=== PATIENT | male | born 1985 | race Caucasian/White ===

== ENCOUNTER 2022-03-11 05:34 | Outpatient (CLI) | payer OTHER ==
[~2022-03-11] VITALS: Ht 175.3 cm; Wt 101.6 kg
[2022-03-11] MEDS ORDERED: PANT40TA52 PO (14:20)
== END 2022-03-11 14:24 | disposition home or self-care (01) ==
LOC: PREOP 05:34
PROVIDERS: ATTEND Surgery
DX: Z01.818 Encounter for other preprocedural examination (principal)

== ENCOUNTER 2022-03-13 10:32 | Day surgery (SDC) | payer OTHER ==
[~2022-03-13] VITALS: Ht 175 cm; Wt 101.6 kg
[~2022-03-13 10:32] MED LIST: PANT40TA52 PO
[2022-03-13] MEDS ORDERED: LACTATED RINGERS 1,000 ML IV STA (10:38)
[2022-03-13] MEDS ORDERED: LACTATED RINGERS 1,000 ML IV ONE (10:44)
[2022-03-13] MEDS ORDERED: HURRICAINE EXT TUBE (BENZOCAINE) XX PRN (10:45)
[2022-03-13] MEDS ORDERED: LIDOCAINE JELLY 2% 6 ML SYRINGE MM PRN (10:45)
[2022-03-13 10:50] VITALS: BP 129/94
--- NOTE | 2022-03-13 10:57 | Progress Note-Pre Operative ---
Pre-Operative Progress Note H&P Reviewed The H&P was reviewed, patient examined and no changes noted. Date Seen by Provider: Mar 13, 2022 Time Seen by Provider: 10:45 Date H&P Reviewed: Mar 13, 2022 Time H&P Reviewed: :45 Pre-Operative Diagnosis: GERD, elevated LFT's ALEX STOKES MD Mar 13, 2022 10:57
--- NOTE | 2022-03-13 10:59 | Discharge Inst-Surgical ---
D/C Lap Instructions-KIKE Follow Up 2weeks Activity as tolerated High Fiber Diet 25g or more per day Avoid Alcohol, Caffeine, Spicy Kim and Acid foods. Drink 64 fluid oz or more of fluids per day. Symptoms to Report: Fever over 101 degree F, Nausea/Vomiting If any problems/questions: Contact your physician or go to Emergency Room ALEX STOKES MD Mar 13, 2022 10:59
[2022-03-13] MEDS ORDERED: ONDANSETRON 4 MG/2 ML (SDV) Z0FRAN IVP PRN (11:00)
[2022-03-13] MEDS ORDERED: ONDANSETRON 4 MG (ZOFRAN) ORAL DISSOLVE TAB PO PRN (11:00)
[2022-03-13] MEDS ORDERED: MIDAZOLAM 2 MG/2 ML (VERSED) VIAL ONE (11:44)
[2022-03-13] MEDS ORDERED: proPOfol 200 MG/20 ML (DIPRIVAN) VIAL IV ONE (11:44)
[2022-03-13] MEDS ORDERED: PROPOFOL INJECTION 50 ML IV ONE (11:57)
[2022-03-13] MEDS ORDERED: KETAMINE 50 MG/5 ML SYRINGE ONE (12:01)
[2022-03-13 12:22] VITALS: BP 133/74
[2022-03-13 12:27] VITALS: BP 141/85
[2022-03-13 12:32] VITALS: BP 122/78
[2022-03-13 12:34] VITALS: BP 122/78
--- NOTE | 2022-03-13 12:51 | Progress Note-Post Operative ---
Post-Operative Progess Note Surgeon (s)/Appraiser Timber (s) Surgeon ALEX STOKES MD Appraiser Timber: none Pre-Operative Diagnosis GERD, elevated LFT's Post-Operative Diagnosis reflux esophagitis(grade B), small HH(1.5cm), moderate gastritis. Procedure & Operative Findings Date of Procedure 03/13/22 Procedure Performed/Findings EGD with bx. Anesthesia Type mac Estimated Blood Loss Estimated blood loss (mL): minimal Specimens/Packing Specimens Removed ge jxn, antrum ALEX STOKES MD Mar 13, 2022 12:51
--- NOTE | 2022-03-13 19:17 | OPERATIVE REPORT ---
DATE OF SERVICE: 03/13/2022 PREOPERATIVE DIAGNOSES: Gastroesophageal reflux disease. POSTOPERATIVE DIAGNOSES: Reflux esophagitis, Doucette grade B, small hiatal hernia approximately 2 cm in size, and moderate gastritis. PROCEDURES PERFORMED: EGD with biopsy. SURGEON: Alex Stokes MD. ANESTHESIA: Monitored anesthesia care. ESTIMATED BLOOD LOSS: Minimal. FINDINGS: Reflux esophagitis, Doucette grade B, small hiatal hernia approximately 2 cm in size, and moderate gastritis. DISPOSITION: The patient tolerated the procedure well. INDICATIONS FOR PROCEDURE: The patient is a 56-year-old male referred over to us by the [facility]. He has a history of epigastric pain; however, has also had been found to have elevated liver function enzymes. He does drink a significant amount of alcohol per the patient and his and states several beers daily; however, may have 30 on a weekend. He, however, is adamant about not being an alcoholic. He was also found to have elevated liver function enzymes. A CT scan was performed, which did show a gallbladder polyp. DESCRIPTION OF PROCEDURE: The patient was brought to the endoscopy suite and laid in the left lateral decubitus position. After adequate IV pain and sedative medications and monitored anesthesia care, the mouthpiece was applied. The endoscope was placed in the mouth, visualizing the pharynx and hypopharyngeal region. Vocal cords, epiglottis, and vallecula identified and appeared to be normal. The endoscope was then gently intubated, the esophageal opening and esophagus insufflated. The endoscope was then advanced through the first, second, and third portion of esophagus. At the level of the GE junction, a reflux esophagitis, Doucette grade II identified. A biopsy was taken with forceps with visualization of good hemostasis. The endoscope was advanced into the stomach and endoscope retroflexed, visualizing a small hiatal hernia approximately 2 cm in size. There was a moderate severity gastritis. No formal ulcerations, polyps or any neoplasms. A biopsy was taken of the antrum to rule out H. pylori with visualization of good hemostasis. The endoscope was then advanced to the pylorus and first and second portion of the duodenum, which appeared normal. The endoscope was then slowly withdrawn while taking a second look and suctioning residual air with no additional findings. The patient tolerated the procedure well. We will recommend the necessary lifestyle and dietary accommodation including small and more frequent meals, avoiding to eating at night as well as head elevation while lying supine. He also needs to moderate alcohol and caffeinated beverages as well as spicy, greasy, and acidic foods. There is a chance that he does have a symptomatic gallbladder polyp and a possibility of liver steatosis as well. If he continues to have symptoms, our next recommendation would then be to proceed with a laparoscopic cholecystectomy as well as a liver biopsy. Job ID: [id number] DocumentID: [id number] Dictated Date: 03/13/2022 12:22:17 Software Test Technician Date: 03/13/2022 19:16:45 Dictated By: ALEX STOKES MD MTDD
== END 2022-03-13 13:14 | disposition home or self-care (01) ==
LOC: ENDO 10:32
PROVIDERS: ATTEND Surgery
DX: K21.00 Gastro-esophageal reflux disease with esophagitis, without bleeding (principal); K44.9 Diaphragmatic hernia without obstruction or gangrene; K29.70 Gastritis, unspecified, without bleeding; K82.4 Cholesterolosis of gallbladder; F17.210 Nicotine dependence, cigarettes, uncomplicated; Z79.899 Other long term (current) drug therapy

== ENCOUNTER 2022-04-16 07:20 | Emergency (ER) | payer OTHER ==
[~2022-04-16] VITALS: Ht 175 cm; Wt 100.0 kg
--- NOTE | 2022-04-16 07:53 | ED General ---
General Chief Complaint: Fever-Adult/Adol Stated Complaint: L EAR INFECTION,FEVER,COUGH Nursing Triage Note: ARRIVED VIA AMB TO ROOM 10. FEVER OF 102 STARTED EARLY SAT MORNING. WAS PUT ON AMOXICILLIN AND STATES HE IS NOT BETTER. COMPLAINS OF HEADACHE, SORE THROAT, COUGH. History of Present Illness Date Seen by Provider: April 16, 2022 Time Seen by Provider: 07:35 Initial Comments 37-year-old male with no significant PMH, is here with complaints of bilateral ear pain, with the left ear being worse than the right, sore throat, myalgia, cough, lethargic for the past 3 to 4 days. No known sick contacts. Patient went to urgent care in [place] on Friday, and was given a prescription for amoxicillin 500 mg twice a day. Patient started taking it at 11 AM on Friday but has not felt any improvement with it, and states that his ear pain and sore throat has been worsening since then with accompanied ringing in his ears. Denies discharge from ears, chest pain, shortness of breath, abdominal pain, diarrhea, blurry vision, neck pain or neck stiffness. Patient has also been experiencing loss of taste and loss of smell as well, and has not been drinking much water. Patient did a home test for COVID which was negative. Pt started developing ringing in his ears so he poured hydrogen peroxide into his ear as well. Allergies and Home Medications Allergies Coded Allergies: No Known Drug Allergies (Unverified , 03/11/22) Patient Home Medication List Home Medication List Reviewed: Yes Pantoprazole Sodium (Pantoprazole Sodium) 40 Mg Tablet.dr, 40 MG PO DAILY, (Reported) Entered as Reported by: RONAK WICK on 03/11/22 [id number] Review of Systems Review of Systems Constitutional: chills, fever, malaise EENTM: ear pain, nose congestion, throat pain Respiratory: cough Cardiovascular: no symptoms reported Gastrointestinal: no symptoms reported Genitourinary: no symptoms reported Musculoskeletal: no symptoms reported Skin: no symptoms reported Psychiatric/Neurological: No Symptoms Reported Hematologic/Lymphatic: No Symptoms Reported Immunological/Allergic: no symptoms reported Past Viruohc-Wfllte-Tvgmrg Hx Patient Social History Tobacco Use?: No Substance use?: No Alcohol Use?: Yes Alcohol Frequency: Once in a while Immunizations Up To Date First/Initial COVID19 Vaccinat: UNKNOWN Second COVID19 Vaccination Hussein: yes Third COVID19 Vaccination Date: NO COVID19 Vaccine Slubber Hand: J&J Seasonal Allergies Seasonal Allergies: No Past Medical History Surgeries: No Respiratory: No Cardiac: No Neurological: No Genitourinary: No Gastrointestinal: Yes (abd pain) Gastroesophageal Reflux Musculoskeletal: No Endocrine: No HEENT: No Cancer: No Psychosocial: Yes Anxiety Integumentary: No Blood Disorders: No Physical Exam Vital Signs Vital Signs - First Documented 04/16/22 07:30 Temp 36.6 Pulse 90 Resp 16 B/P (MAP) 118/90 (99) Pulse Ox 97 O2 Delivery Room Air Capillary Refill : Less Than 3 Seconds Height, Weight, BMI Height: '" Weight: lbs. oz. kg; 32.00 BMI Method: General Appearance: No Apparent Distress HEENT: PERRL/EOMI, Pharyngeal Erythema (with tonsillar enlargemwnt, no exudates), TM Abnormal (L) (left worse than right), TM Abnormal (R), Tonsillar Enlargement Neck: Full Range of Motion, Normal Inspection, Non Tender, Supple Respiratory: Chest Non Tender, Lungs Clear, Normal Breath Sounds, No Accessory Muscle Use Cardiovascular: Regular Rate, Rhythm Gastrointestinal: Normal Bowel Sounds, Non Tender, Soft Back: No CVA Tenderness Neurologic/Psychiatric: Alert, Oriented x3, No Motor/Sensory Deficits, Normal Mood/Affect Skin: Normal Color Progress/Results/Core Measures Suspected Sepsis SIRS Temperature: Pulse: 90 Respiratory Rate: 16 Laboratory Tests 04/16/22 08:13: White Blood Count 10.6 Blood Pressure 118 /90 Mean: 99 Laboratory Tests 04/16/22 08:13: Platelet Count 247 Results/Orders Lab Results Laboratory Tests Test 04/16/22 07:31 04/16/22 08:13 Range/Units Influenza Type A (RT-PCR) Not Detected Not Detecte Influenza Type B (RT-PCR) Not Detected Not Detecte SARS-CoV-2 RNA (RT-PCR) Not Detected Not Detecte Group A Streptococcus Screen NEGATIVE NEGATIVE White Blood Count 10.6 4.3-11.0 10^3/uL Red Blood Count 5.32 4.30-5.52 10^6/uL Hemoglobin 15.1 13.3-17.7 g/dL Hematocrit 44 40-54 % Mean Corpuscular Volume 84 80-99 fL Mean Corpuscular Hemoglobin 28 25-34 pg Mean Corpuscular Hemoglobin Concent 34 32-36 g/dL Red Cell Distribution Width 12.6 10.0-14.5 % Platelet Count 247 130-400 10^3/uL Mean Platelet Volume 10.0 9.0-12.2 fL Immature Granulocyte % (Auto) 1 % Neutrophils (%) (Auto) 72 42-75 % Lymphocytes (%) (Auto) 18 12-44 % Monocytes (%) (Auto) 8 0-12 % Eosinophils (%) (Auto) 1 0-10 % Basophils (%) (Auto) 0 0-10 % Neutrophils # (Auto) 7.6 1.8-7.8 10^3/uL Lymphocytes # (Auto) 2.0 1.0-4.0 10^3/uL Monocytes # (Auto) 0.8 0.0-1.0 10^3/uL Eosinophils # (Auto) 0.2 0.0-0.3 10^3/uL Basophils # (Auto) 0.0 0.0-0.1 10^3/uL Immature Granulocyte # (Auto) 0.1 0.0-0.1 10^3/uL Sodium Level 138 135-145 MMOL/L Potassium Level 3.9 3.6-5.0 MMOL/L Chloride Level 102 98-107 MMOL/L Carbon Dioxide Level 23 21-32 MMOL/L Anion Gap 13 5-14 MMOL/L Glucose Level 96 70-105 MG/DL Calcium Level 9.2 8.5-10.1 MG/DL Corrected Calcium 9.0 8.5-10.1 MG/DL Total Protein 7.1 6.4-8.2 GM/DL Albumin 4.2 3.2-4.5 GM/DL My Orders Orders - ZENY RO MD Cbc With Automated Diff (04/16/22 07:45) Comprehensive Metabolic Panel (04/16/22 07:45) Rapid Strep A Screen (04/16/22 07:45) Covid 19 Inhouse Test (04/16/22 07:45) Ed Iv/Invasive Line Start (04/16/22 07:46) Ns Iv 1000 Ml (Sodium Chloride 0.9%) (04/16/22 08:00) Ketorolac Injection (Toradol Injection) (04/16/22 08:05) Ketorolac Injection (Toradol Injection) (04/16/22 08:03) Influenza A And B By Pcr (04/16/22 07:31) Vital Signs/I&O 04/16/22 07:30 Temp 36.6 Pulse 90 Resp 16 B/P (MAP) 118/90 (99) Pulse Ox 97 O2 Delivery Room Air Capillary Refill : Less Than 3 Seconds Blood Pressure Mean: 99 Progress Note : Progress Note 1. BILATERAL OTITIS MEDIA/ ACUTE PHARYNGITIS: - Rapid COVID test/ Rapid Flu Test - Rapid Strep test - CBC/ CMP - NS IVF - Toradol 15mg iv - Pt has taken 2 days of Amoxicillin, I will change medication to Augmentin 875mg Q12H for 10 days. Prescription for Augmentin 875/125mg twice a day for 10 days. Advised to stop taking plain Amoxicillin, and take the Augmentin instead. - Ibuprofen and Tylenol prn pain and fever - Cepacol throat spray, Over the counter. Follow instructions on bottle - Follow up with PCP within 5 to 7 days -The patient was seen in the ED, and treated appropriately to presentation at a specific point in time. Patient is informed that there is a possibility that disease and illness can evolve and change in acuity rapidly or slowly after patient is discharged from the ER. Precautionary advice given to the patient for immediate return to ER if symptoms worsen or do not resolve, and to seek emergency care sooner rather than later. Pt also advised on the importance of PCP follow up and compliance with management and follow up plan with PCP and/or specialist, as this is part of the management plan. Pt verbally expressed understanding. Departure Impression Primary Impression: Bilateral acute otitis media Additional Impressions: Acute pharyngitis Qualified Codes: J02.9 - Acute pharyngitis, unspecified Lab test negative for COVID-19 virus Dehydration determined by examination Disposition: HOME, SELF-CARE Condition: Critical Departure-Patient Inst. Referrals: NO,LOCAL PHYSICIAN (PCP/Family) Primary Care Physician Patient Instructions: Dehydration, Adult (DC), Sore Throat in Adults, Why Water Is Important to Health, Ear Infections (Otitis Media) in Adults (DC) Add. Discharge Instructions: Prescription for Augmentin 875/125mg twice a day for 10 days. Advised to stop taking plain Amoxicillin, and take the Augmentin instead. Called prescription into pharmacy. - Ibuprofen and Tylenol prn pain and fever - Cepacol throat spray, Over the counter. Follow instructions on bottle - Follow up with PCP within 5 to 7 days All discharge instructions reviewed with patient and/or family. Voiced understanding. Scripts Ketorolac Tromethamine (Ketorolac Tromethamine) 10 Mg Tablet 10 MG PO Q6H PRN for PAIN-MODERATE (5-7) for 3 Days, #12 TAB Do not take other NSAID's with this medication. Do no take more than 40mg in one day. Prov: ZENY RO MD 04/16/22 Work/School Note: Work Release Form Date Seen in the Emergency Department: April 16, 2022 Return to Work: Apr 18, 2022 Restrictions: No Restrictions ZENY RO MD April 16, 2022 07:53
[2022-04-16] MEDS ORDERED: NS IV 1000 ML 1,000 ML IV SCH (08:00)
[2022-04-16] MEDS ORDERED: KETOROLAC 15 MG/ML VIAL IVP ONE (08:00)
[2022-04-16] MEDS ORDERED: KETOROLAC 30 MG/ML VIAL ONE (08:03)
[2022-04-16] MEDS ORDERED: KETOROLAC 30 MG/ML VIAL IVP STA (08:05)
[2022-04-16 08:26] LABS: BASOPHILS % (AUTO) 0 % (0-10); EOSINOPHILS # (AUTO) 0.2 10^3/uL (0.0-0.3); EOSINOPHILS % (AUTO) 1 % (0-10); HEMATOCRIT 44 % (40-54); HEMOGLOBIN 15.1 g/dL (13.3-17.7); LYMPHOCYTES % (AUTO) 18 % (12-44); MEAN CORPUSCULAR HEMOGLOBIN 28 pg (25-34); MEAN CORPUSCULAR HGB CONC 34 g/dL (32-36); MEAN CORPUSCULAR VOLUME 84 fL (80-99); MONOCYTES # (AUTO) 0.8 10^3/uL (0.0-1.0); MONOCYTES % (AUTO) 8 % (0-12); NEUTROPHILS # (AUTO) 7.6 10^3/uL (1.8-7.8); NEUTROPHILS % (AUTO) 72 % (42-75); PLATELET COUNT 247 10^3/uL (130-400); WHITE BLOOD COUNT 10.6 10^3/uL (4.3-11.0)
[2022-04-16 08:37] LABS: ALBUMIN 4.2 GM/DL (3.2-4.5); POTASSIUM 3.9 MMOL/L (3.6-5.0)
[2022-04-16 08:38] LABS: CALCIUM 9.2 MG/DL (8.5-10.1)
[2022-04-16 08:40] LABS: TOTAL PROTEIN 7.1 GM/DL (6.4-8.2)
[2022-04-16 08:41] LABS: BILIRUBIN,TOTAL 0.5 MG/DL (0.1-1.0)
[2022-04-16 08:43] LABS: CREATININE SERUM 0.92 MG/DL (0.60-1.30)
[2022-04-16] MEDS ORDERED: KETO10TA PO (09:04)
[2022-04-16 09:12] VITALS: BP 133/93
== END 2022-04-16 09:11 | disposition home or self-care (01) ==
LOC: EDUNIT# 07:20 → ER 07:22
DX: H66.93 Otitis media, unspecified, bilateral (principal); J02.9 Acute pharyngitis, unspecified; E86.0 Dehydration; Z20.822 Contact with and (suspected) exposure to COVID-19; Z28.311 Partially vaccinated for COVID-19
CPT/HCPCS: 36415; 80053; 85025; 87430; 87636

== ENCOUNTER 2022-11-01 05:38 | Outpatient (CLI) | payer OTHER ==
[~2022-11-01] VITALS: Ht 175 cm; Wt 100.0 kg
[~2022-11-01 05:38] MED LIST changes: +KETO10TA PO
== END 2022-11-05 12:26 | disposition home or self-care (01) ==
LOC: PREOP 05:38
PROVIDERS: ATTEND Surgery
DX: Z01.818 Encounter for other preprocedural examination (principal); K82.4 Cholesterolosis of gallbladder

== ENCOUNTER 2022-11-28 09:51 | Day surgery (SDC) | payer OTHER ==
[~2022-11-28] VITALS: Ht 175 cm; Wt 100.0 kg
[2022-11-28] VITALS (10 sets, daily range): BP systolic 108–147; BP diastolic 70–98
[2022-11-28] MEDS ORDERED: LACTATED RINGERS 1,000 ML IV PRN ×2 (10:00)
[2022-11-28] MEDS ORDERED: ceFAZolin INJECTION 2,000 MG in NS (IVPB) 50 ML IV ONE (10:00)
--- NOTE | 2022-11-28 10:12 | Progress Note-Pre Operative ---
Pre-Operative Progress Note Date H&P Reviewed: Nov 28, 2022 Time H&P Reviewed: 10:10 History & Physical: H&P Reviewed, Patient Examed, No changes noted Pre-Operative Diagnosis: Symptomatic gallbladder polyp PAM VALDEZ APRN Nov 28, 2022 10:12
[2022-11-28] MEDS ORDERED: HYDR-3817 PO (10:14)
[2022-11-28] MEDS ORDERED: morphine INJ 10 MG/ML 1ML (SYR OR VIAL) IVP PRN (10:15)
[2022-11-28] MEDS ORDERED: ONDANSETRON 4 MG/2 ML (SDV) Z0FRAN IVP PRN ×2 (10:15→12:15)
[2022-11-28] MEDS ORDERED: ACETAMINOPHEN 325 MG TABLET PO PRN (10:15)
[2022-11-28] MEDS ORDERED: HYDROcodone/APAP 5 MG/325 MG (LORTAB) TAB PO ONE (10:15)
--- NOTE | 2022-11-28 10:15 | Discharge Inst-Surgical ---
D/C Lap Instructions-KIDO Reconcile Patient Problems Problems Reviewed?: Yes New, Converted, or Re-Newed RX: RX on Chart Follow Up Appt in 2 weeks Activity as tolerated No driving for 24 hours No driving while on pain medications Incentive Spirometry use every 2 hours while awake Regular Diet Symptoms to Report: Fever over 101 degree F, Nausea/Vomiting Infection Signs and Symptoms to report: Increased redness, Foul odor of wound, Increased drainage Bathing instructions: May shower Operative Area Clean/Dry; Keep incision clean/dry If any problems/questions: Contact your physician or go to Emergency Room PAM VALDEZ APRN Nov 28, 2022 10:15
[2022-11-28] MEDS: LACTATED RINGERS 1,000 ML IV PRN ×2 (10:22→12:19)
[2022-11-28] MEDS ORDERED: MIDAZOLAM 2 MG/2 ML (VERSED) VIAL IVP ONE (10:30)
[2022-11-28] MEDS ORDERED: MIDAZOLAM 2 MG/2 ML (VERSED) VIAL IV ONE (10:30)
[2022-11-28] MEDS ORDERED: MIDAZOLAM 2 MG/2 ML (VERSED) VIAL ONE ×2 (10:31→10:48)
[2022-11-28] MEDS ORDERED: BUP/EPI 0.25% 1:200,000 (MARCAINE) 30 ML VIAL ONE (10:39)
[2022-11-28] MEDS ORDERED: fentaNYL INJ 100 MCG/2 ML AMP ONE ×2 (10:48→12:06)
[2022-11-28] MEDS ORDERED: BUP/EPI 0.25% 1:200,000 (MARCAINE) 30 ML VIAL INJ ONE (11:32)
[2022-11-28] MEDS ORDERED: LIDOCAINE PF 2% 5 ML (XYLOCAINE) VIAL ONE (11:46)
[2022-11-28] MEDS ORDERED: GLYCOPYRROLATE 0.2 MG/ML (ROBINUL) 2 ML VIAL ONE (11:46)
[2022-11-28] MEDS ORDERED: ONDANSETRON 4 MG/2 ML (SDV) Z0FRAN ONE (11:46)
[2022-11-28] MEDS ORDERED: ROCURONIUM 50 MG/5 ML (ZEMURON) VIAL IV ONE (11:46)
[2022-11-28] MEDS ORDERED: NEOSTIGMINE (BLOXIVERZ ) 1 MG/1ML 10 ML VIAL ONE (11:46)
[2022-11-28] MEDS ORDERED: SEVOFLURANE (ULTANE) 15 ML INHAL SOLN ONE (11:46)
[2022-11-28] MEDS ORDERED: HYDROmorphone 2 MG/ML VIAL (DILAUDID) ONE (11:53)
[2022-11-28] MEDS ORDERED: fentaNYL INJ 100 MCG/2 ML AMP IVP ONE (12:15)
[2022-11-28] MEDS ORDERED: HYDROmorphone 2 MG/ML VIAL (DILAUDID) IV ONE (12:15)
[2022-11-28] MEDS ORDERED: HYDROcodone/APAP 7.5 MG/325 MG (LORTAB, LORCET PLUS) TABLET PO ONE ×2 (13:08→13:15)
--- NOTE | 2022-11-28 15:54 | Progress Note-Post Operative ---
Post-Operative Progess Note Surgeon (s)/Contact Lens Technician (s) Surgeon ALEX STOKES MD Contact Lens Technician: maurice gallo SUPERVISOR [employer]ING Pre-Operative Diagnosis Symptomatic gallbladder polyp Post-Operative Diagnosis same Procedure & Operative Findings Date of Procedure 11/28/22 Procedure Performed/Findings laparoscopic cholecystectomy Anesthesia Type get Estimated Blood Loss Estimated blood loss (mL): minimal Specimens/Packing Specimens Removed gallbladder ALEX STOKES MD Nov 28, 2022 15:54
--- NOTE | 2022-11-28 20:25 | OPERATIVE REPORT ---
DATE OF SERVICE: 11/28/2022 ATTENDING PRIMARY SPEECH CORRECTION CONSULTANT: [facility]. PREOPERATIVE DIAGNOSES: Symptomatic gallbladder polyp and biliary dyskinesia. POSTOPERATIVE DIAGNOSES: Symptomatic gallbladder polyp and biliary dyskinesia. PROCEDURE: Laparoscopic cholecystectomy. SURGEON: Dr. Stokes. RISK CONTROL REPRESENTATIVE: Abdiel Almaguer APRN ANESTHESIA: General endotracheal. ESTIMATED BLOOD LOSS: Minimal. FINDINGS: Cholesterolosis of the inner mucosa of the gallbladder. DISPOSITION: The patient tolerated the procedure well. INDICATIONS: The patient is a 37-year-old male who has had 2-year history of intermittent pain in the upper abdominal quadrants with radiation towards the back. He does have some risk factors for peptic ulcer disease as well as liver steatosis. He used to drink on a daily basis including hard alcohol and beer and did have some laboratory work done, which did show elevated liver function enzymes. He states that he did dramatically decrease his alcohol intake and only drinks 1-day a week. Another set of liver function enzyme lab work was done, which became normal. He also underwent an EGD and was found to have reflux esophagitis Hardwick grade B as well as a moderate gastritis; however, no other lesions identified. The patient had reported abdominal bloating and distention as well, usually after eating meals as well as diarrhea after specific foods. He also stated pizza made this much worse. He underwent an ultrasound, which showed a gallbladder polyp and a HIDA scan, which showed an ejection fraction that was on the high end at 74%. His symptoms were likely due to the gallbladder polyp as well as a component of biliary dyskinesia. DESCRIPTION OF PROCEDURE: The patient was brought to the operating room and laid supine on the table. After adequate IV pain and sedative medications and general endotracheal intubation, the abdomen was prepped and draped in standard surgical fashion. A 0.5% Marcaine with epinephrine was then used to anesthetize the overlying skin in the left upper abdominal quadrant and a transverse skin incision made using a #15 blade. An 0 silk suture was applied to the medial aspect of the incision for retraction and a Veress needle inserted with a low opening pressure of 0 mmHg. The abdomen was then insufflated to 15 mmHg pressure. The Veress needle was removed and a 5 mm XL trocar placed followed by a 5 mm 45-degree angle laparoscope visualized in the peritoneal cavity. A 4-quadrant abdominal exploration was performed. There was no gallbladder wall thickening. There was hepatomegaly. Under direct visualization, we then proceeded to place a supraumbilical 10 mm port after the skin and peritoneal lining were anesthetized using 0.5% Marcaine with epinephrine and a transverse skin incision made using a #15 blade. In a similar manner, a right upper abdominal quadrant 5 mm port was placed. The fundus of the gallbladder was then retracted anteriorly and superiorly. The patient was then placed in reverse Trendelenburg position as well as plane right side up, left side down. The hepatoduodenal ligament was then dissected bluntly as well as electrocautery on the hook instrument as well as a [place] dissector. The entire critical view of safety was identified including the triangle of Calot as well as the cystic duct and artery as the only two structures going into the gallbladder as well as the cystic plate behind the proximal gallbladder. A timeout was then taken and the cystic duct and artery were then clipped proximally and distally and cut with EndoShears. The gallbladder was then dissected off of the liver bed using cautery on the hook instrument with visualization of good hemostasis as well as no leaking ducts of Luschka. The gallbladder was removed through the 10 mm port site using an EndoCatch bag. The fascia and peritoneum to the 10 mm port were then closed under direct visualization using a Fede-Elizabeth device and an 0 Vicryl suture. The abdomen was then desufflated and the remaining ports removed. All skin incisions were closed using 4-0 Monocryl running subcuticular sutures. Wounds were then cleaned and covered with Dermabond. The patient tolerated the procedure well. We will start IV and oral pain medication as well as a clear liquid diet. Once he is tolerating clears, has good pain control with oral pain medications, ambulating well, we will discharge him home where he will be instructed to do no heavy lifting or exertion for the next two weeks. Job ID: [id number] DocumentID: [id number] Dictated Date: 11/28/2022 13:17:45 Child Care Education Coordinator Date: 11/28/2022 20:23:00 Dictated By: ALEX STOKES MD [facility]
== END 2022-11-28 13:54 | disposition home or self-care (01) ==
LOC: SDC 09:51
PROVIDERS: ATTEND Surgery
DX: K81.1 Chronic cholecystitis (principal); K82.8 Other specified diseases of gallbladder; E66.9 Obesity, unspecified; Z68.32 Body mass index [BMI] 32.0-32.9, adult; G47.33 Obstructive sleep apnea (adult) (pediatric); F17.210 Nicotine dependence, cigarettes, uncomplicated
CPT/HCPCS: 87081

== ENCOUNTER → 2022-12-05 | Outpatient (CLI) | payer OTHER ==
[~2022-12-05] MED LIST changes: +HYDR-3817 PO
[2022-12-05 10:57] LABS: BASOPHILS % (AUTO) 1 % (0-10); EOSINOPHILS # (AUTO) 0.1 10^3/uL (0.0-0.3); EOSINOPHILS % (AUTO) 1 % (0-10); HEMATOCRIT 48 % (40-54); HEMOGLOBIN 16.3 g/dL (13.3-17.7); LYMPHOCYTES # (AUTO) 2.1 10^3/uL (1.0-4.0); LYMPHOCYTES % (AUTO) 30 % (12-44); MEAN CORPUSCULAR HEMOGLOBIN 29 pg (25-34); MEAN CORPUSCULAR HGB CONC 34 g/dL (32-36); MEAN CORPUSCULAR VOLUME 86 fL (80-99); MEAN PLATELET VOLUME 10.1 fL (9.0-12.2); MONOCYTES # (AUTO) 0.7 10^3/uL (0.0-1.0); MONOCYTES % (AUTO) 10 % (0-12); NEUTROPHILS % (AUTO) 57 % (42-75); PLATELET COUNT 276 10^3/uL (130-400); WHITE BLOOD COUNT 7.1 10^3/uL (4.3-11.0)
[2022-12-05 11:12] LABS: ALBUMIN 4.2 GM/DL (3.2-4.5); BILIRUBIN,TOTAL 0.4 MG/DL (0.1-1.0); CALCIUM 9.1 MG/DL (8.5-10.1); CREATININE SERUM 1.06 MG/DL (0.60-1.30); TOTAL PROTEIN 7.4 GM/DL (6.4-8.2)
== END ==
LOC: LAB 10:35
PROVIDERS: ATTEND Surgery
DX: R50.9 Fever, unspecified (principal); R10.9 Unspecified abdominal pain
CPT/HCPCS: 36415; 80053; 85025